=== PATIENT | female | born 1945 | race Caucasian/White ===

== ENCOUNTER 2017-11-19 12:13 | Day surgery (SDC) | payer OTHER, MEDICARE ==
[2017-11-19 13:09] VITALS: BMI 31.6
[2017-11-19 13:44] VITALS: TEMP 97.6
[2017-11-19 14:33] VITALS: BP 112/69; PULSE 86
--- NOTE | 2017-11-23 18:09 | PATH ---
Surgical Pathology Report Patient Name: PETE HERNANDEZ [facility]. Rec. #: [id number] /Age/Gender: 1945 (Age: 72) / F Account: [id number] Location: U-ENDOSCOPY Taken: 11/19/2017 Received: 11/22/2017 Reported: 11/23/2017 Physicians: Erlin Collins M.D. Specimen(s) Received A: BX DUODENUM B: BX ANTRUM AND BODY C: BX GE JUNCTION D: BX MID ESOPHAGUS Clinical History Acid reflux symptoms Postoperative diagnosis: GERD Final Diagnosis A. DUODENUM, BIOPSY: DUODENAL MUCOSA WITH MILD CHRONIC DUODENITIS. B. ANTRUM AND BODY, BIOPSY: GASTRIC MUCOSA WITH FOCAL REACTIVE GASTROPATHY. IMMUNOSTAIN IS NEGATIVE FOR H. PYLORI ORGANISMS. C. GE JUNCTION, BIOPSY: GASTROESOPHAGEAL JUNCTIONAL MUCOSA WITH CHANGES CONSISTENT WITH REFLUX ESOPHAGITIS. NEGATIVE FOR INTESTINAL METAPLASIA. D. MIDESOPHAGUS, BIOPSY: ESOPHAGEAL MUCOSA WITH CHANGES CONSISTENT WITH REFLUX ESOPHAGITIS. Electronically Signed Lisa Hamilton M.D. Gross Description A. Received in formalin, labeled "biopsy duodenum" are 3 bond, irregular portions of soft tissue ranging from 0.1-0.3 cm. in greatest dimension. The specimens are submitted in toto in one cassette. B. Received in formalin, labeled "biopsy antrum and body" are 3 bond, irregular portions of soft tissue ranging from 0.2-0.4 cm. in greatest dimension. The specimens are submitted in toto in one cassette. C. Received in formalin, labeled "biopsy GE junction" are 2 bond, irregular portions of soft tissue measuring 0.2 and 0.3 cm. in greatest dimension. The specimens are submitted in toto in one cassette. D. Received in formalin, labeled "biopsy midesophagus" are 2 bond, irregular portions of soft tissue measuring 0.3 and 0.4 cm. in greatest dimension. The specimens are submitted in toto in one cassette. 11/22/2017 saudi11/22/2017
== END 2017-11-19 14:53 | disposition home or self-care (01) ==
LOC: JASU-ENDO 12:13
PROVIDERS: ATTEND Internal Medicine Gastroenterology
PROC: 0DB68ZX Excision of Stomach, Via Natural or Artificial Opening Endoscopic, Diagnostic (ICD-10-PCS; 2017-11-19)
PROC: 0DB58ZX Excision of Esophagus, Via Natural or Artificial Opening Endoscopic, Diagnostic (ICD-10-PCS; 2017-11-19)
PROC: 0DB98ZX Excision of Duodenum, Via Natural or Artificial Opening Endoscopic, Diagnostic (ICD-10-PCS; principal; 2017-11-19 13:00)
DX: R10.13 Epigastric pain (principal)
CPT/HCPCS: 88305-TC; 88342-TC

== ENCOUNTER 2021-06-06 04:21 | Day surgery (SDC) | payer OTHER, MEDICARE ==
[2021-06-05 13:43] VITALS: BMI 31.8
[2021-06-06] MEDS ORDERED: BUPIVACAINE HCL/PF 0.75% 10 ML VIAL ONE (07:09)
[2021-06-06] MEDS ORDERED: LIDOCAINE HCL/PF 1% SDV 5ML VIAL ONE (07:09)
[2021-06-06] MEDS ORDERED: LIDOCAINE HCL 1% PRESERVATIVE FREE - 30ML VIAL IJ ONE (09:51)
[2021-06-06] MEDS ORDERED: IOHEXOL 180 MG/1 ML ML IJ ONE ×2 (09:52→09:53)
[2021-06-06] MEDS ORDERED: BUPIVACAINE HCL/PF 0.75% 10 ML VIAL NR ONE ×2 (09:52→09:55)
[2021-06-06 11:13] VITALS: BP 102/68; PULSE 94; TEMP 97.1
== END 2021-06-06 11:10 | disposition home or self-care (01) ==
LOC: JASU-SURG 04:21
PROVIDERS: ATTEND Pain Medicine Pain Medicine
PROC: BR16YZZ Fluoroscopy of Lumbar Facet Joint(s) using Other Contrast (ICD-10-PCS; 2021-06-06)
PROC: 3E0T3BZ Introduction of Anesthetic Agent into Peripheral Nerves and Plexi, Percutaneous Approach (ICD-10-PCS; principal; 2021-06-06 09:30)
DX: M47.816 Spondylosis without myelopathy or radiculopathy, lumbar region (principal); I10 Essential (primary) hypertension
CPT/HCPCS: 76000-TC-FY

== ENCOUNTER 2021-09-02 10:46 | Emergency (ER) | payer OTHER, MEDICARE ==
[2021-09-02 10:59] VITALS: BP 111/63; TEMP 98.3; BMI 32.3
[2021-09-02] MEDS ORDERED: BEBTELOVIMAB (EUA) 175 MG/2 ML VIAL IVPUSH ONE (12:18)
[2021-09-02 15:14] VITALS: PULSE 86
== END 2021-09-02 15:14 | disposition home or self-care (01) ==
LOC: JER 10:46
PROC: 3E033GC Introduction of Other Therapeutic Substance into Peripheral Vein, Percutaneous Approach (ICD-10-PCS; principal; 2021-09-02)
DX: U07.1 COVID-19 (principal)
CPT/HCPCS: 96374; 99284-25